=== PATIENT | male | born 1975 | race Caucasian/White ===

== ENCOUNTER 2020-06-09 11:17 | Emergency (ER) | payer OTHER, SELFPAY ==
[2020-06-09] MEDS ORDERED: Ketorolac Tromethamine 30 MG/ML VIAL ONE (13:26)
== END 2020-06-09 13:39 | disposition home or self-care (01) ==
LOC: ERS 11:17
DX: S39.012A Strain of muscle, fascia and tendon of lower back, initial encounter (principal); I10 Essential (primary) hypertension; Z79.899 Other long term (current) drug therapy; X58.XXXA Exposure to other specified factors, initial encounter
CPT/HCPCS: 96372; 99283; J1885